=== PATIENT | male | born 1975 | race Hispanic/Latino ===

== ENCOUNTER 2019-11-08 03:45 | Emergency (ER) | payer SELFPAY ==
[~2019-11-08] VITALS: Ht 157.5 cm; Wt 68.0 kg
--- OUTSIDE RECORDS SUMMARY | 2019-11-08 03:48 | XMS REPORT ---
Author Author [facility] Address Unknown Phone Unavailable Care Team Providers Care Safety Leader Name Role Phone Unavailable Unavailable Payers Payer Name Policy Type Policy Number Effective Date Expiration Date Problems This patient has no known problems. Allergies, Adverse Reactions, Alerts Allergy Name Allergy Type Status Severity Reaction(s) Onset Date Inactive Date Treating Clinician Comments No Known Allergies DA Active U 2018-10-26 00:00:00 No Known Allergies DA Active U 2015-07-17 00:00:00 Medications This patient has no known medications. Results Test Description Test Time Test Comments Text Results Atomic Results Result Comments - XR FINGER(S) 2+V RT 2019-10-23 15:52:00 FAX: Igor Motta [facility] [phone] Dittmer: [address]: REG Name: ROMMEL,ESMSAM Ortega [facility] : 1975 Age/S: 44/M [address] [facility]: [id number] Loc: [place] [address] Phys: Igor Almendarez Acct: [id number] Dis Date: Status: REG ER PHONE #: [phone] Exam Date: 10/23/2019 1542 FAX #: [phone] Reason: FINGER PAIN EXAMS: CPT CODE: [id number] XR FINGER(S) 2+V [place] 86689 REASON FOR EXAM: FINGER PAIN EXAM ORDER DATE: 10/23/2019 2:58 PM Ordering: Igor Almendarez Attending:Gaetano Gonzalez MD Location: PROCEDURE: - XR FINGER(S) 2+V RT FINDINGS: 3 views of the right right 3rd digit were obtained. The osseous structures are unremarkable in size and shape. The joint spaces are maintained. No evidence of fracture. IMPRESSION: Soft tissue deformity in the distal tuft of the right 3rd digit without evidence of radiopaque foreign body at 9450 Reported and signed by: Dean Waller M.D. CC: Igor Almendarez Technologist: Herlinda Choi(Jailyn) Trnscrd Date/Time/By: 10/23/2019 (2814) : By: JanethVTL Orig Print D/T: S: 10/23/2019 (2855) PAGE 1 Signed Report BASIC METABOLIC PANEL 2018-10-26 11:57:00 SODIUM (test code=NA) 138 mmol/L 136-145 POTASSIUM (test code=K) 3.6 mmol/L 3.5-5.1 CHLORIDE (test code=CL) 105.0 mmol/L 98-107 CARBON DIOXIDE (test code=CO2) 25.0 mmol/L 21-32 ANION GAP (test code=GAP) 11.6 10-20 GLUCOSE (test code=GLU) 105 mg/dL 74-106 BLOOD UREA NITROGEN (test code=BUN) 20 mg/dL 7-18 GLOMERULAR FILTRATION RATE (test code=GFR) > 60 mL/min >=60 Estimated GFR by using Modified MDRD formula.Chronic kidney disease is defined as either kidney damageor GFR <60 mL/min/1.73 m2 for >3 months. CREATININE (test code=CREAT) 0.80 mg/dL 0.7-1.3 BUN/CREATININE RATIO (test code=BUN/CREA) 25.0 10-20 CALCIUM (test code=CA) 9.1 mg/dL 8.5-10.1 HEPATIC FUNCTION [id number] 11:57:00* Test Item Value Reference Range Comments TOTAL PROTEIN (test code=PROT) 8.1 gram/dL 6.4-8.2 ALBUMIN (test code=ALB) 4.3 g/dL 3.4-5.0 GLOBULIN (test code=GLOB) 3.8 gram/dL 2.7-4.2 ALBUMIN/GLOBULIN RATIO (test code=A/G) 1.1 0.75-1.50 BILIRUBIN TOTAL (test code=BILT) 0.90 mg/dL 0.0-1.0 BILIRUBIN DIRECT (test code=BILD) 0.21 mg/dL 0.0-0.20 SGOT/AST (test code=AST) 23 IUnit/L 15-37 SGPT/ALT (test code=ALT) 29 IUnit/L 12-78 ALKALINE PHOSPHATASE TOTAL (test code=ALKP) 56 IUnit/L 45-117 Note change in reference range due to change in reagent. [id number] 11:57:00* Test Item Value Reference Range Comments LIPASE (test code=LIP) 39 U/L 73.0-393.0 [id number] 11:57:00* Test Item Value Reference Range Comments TROPONIN-I (test code=TROPI) <0.015 ng/mL 0-0.045 BASIC METABOLIC [id number] 11:48:00* Test Item Value Reference Range Comments SODIUM (test code=NA) 138 mmol/L 136-145 POTASSIUM (test code=K) 3.6 mmol/L 3.5-5.1 CHLORIDE (test code=CL) 105.0 mmol/L 98-107 CARBON DIOXIDE (test code=CO2) mmol/L 21-32 ANION GAP (test code=GAP) 10-20 GLUCOSE (test code=GLU) mg/dL 74-106 BLOOD UREA NITROGEN (test code=BUN) mg/dL 7-18 GLOMERULAR FILTRATION RATE (test code=GFR) mL/min >=60 CREATININE (test code=CREAT) mg/dL 0.7-1.3 BUN/CREATININE RATIO (test code=BUN/CREA) 10-20 CALCIUM (test code=CA) mg/dL 8.5-10.1 HEPATIC FUNCTION [id number] 11:48:00* Test Item Value Reference Range Comments TOTAL PROTEIN (test code=PROT) gram/dL 6.4-8.2 ALBUMIN (test code=ALB) g/dL 3.4-5.0 GLOBULIN (test code=GLOB) gram/dL 2.7-4.2 ALBUMIN/GLOBULIN RATIO (test code=A/G) 0.75-1.50 BILIRUBIN TOTAL (test code=BILT) mg/dL 0.0-1.0 BILIRUBIN DIRECT (test code=BILD) mg/dL 0.0-0.20 SGOT/AST (test code=AST) IUnit/L 15-37 SGPT/ALT (test code=ALT) IUnit/L 12-78 ALKALINE PHOSPHATASE TOTAL (test code=ALKP) IUnit/L 45-117 [id number] 11:48:00* Test Item Value Reference Range Comments LIPASE (test code=LIP) U/L 73.0-393.0 [id number] 11:48:00* Test Item Value Reference Range Comments TROPONIN-I (test code=TROPI) ng/mL 0-0.045 - US ABDOMEN [id number] 11:33:00 Name: ANJEL CARNEY [facility] : 1975 Age/S: 43 / M [address] [facility] Unit #: [id number] Loc: [place] [address] Phys: Oswald Head OPTOMETRIC AIDE Acct: [id number] Dis Date: Status: REG ER PHONE #: [phone] Exam Date: 10/26/2018 1121 FAX #: [phone] Reason: Abdominal Pain EXAMS: CPT CODE: [id number] US ABDOMEN LTD [id number] HISTORY: Abdominal pain. COMPARISON: None available. The liver is normal in echogenicity and texture measuring 14.1 cm in length. No intra or extrahepatic biliary ductal dilatation. CBD is normal at 3.5 mm. Main portal vein is patent with hepatopedal flow and normal spectral waveform. Gallbladder demonstrates small mobile gallstones. No pericholecystic fluid or wall thickening. No ascites. Right kidney is free from hydronephrosis and calyceal stones. Normal echogenicity and texture. Right kidney measured 11.1 cm in length. Visualized portions of the IVC, aorta and pancreas are normal however imaged incompletely. IMPRESSION: Small mobile stones. No pericholecystic fluid or wall thickening. No ascites. at 1133 Reported and signed by: Angelo Ferreira M.D. CC: Kristi Cuenca DO; Oswald Head NP Technologist: YANETH ARSHAD Trnndb Date/Time: 10/26/2018 (1133) [email or web address] Orig Print D/T: S: 10/26/2018 (1137) Probe: PAGE 1 Signed Report CBC W/O [id number] 11:13:00* Test Item Value Reference Range Comments WHITE BLOOD CELL (test code=WBC) 8.6 K/mm3 4.5-12.5 RED BLOOD CELL (test code=RBC) 4.95 mill/mm3 4.0-5.8 HEMOGLOBIN (test code=HGB) 15.7 gram/dL 13.0-17.5 HEMATOCRIT (test code=HCT) 47.3 % 42.0-52.0 MEAN CELL VOLUME (test code=MCV) 95.6 fL 80-98 MEAN CELL HGB (test code=MCH) 31.7 picogram 27.0-33.0 MEAN CELL HGB CONCETRATION (test code=MCHC) 33.2 gram/dL 33.0-36.0 RED CELL DISTRIBUTION WIDTH (test code=RDW) 12.9 % 11.6-16.2 PLATELET COUNT (test code=PLT) 180 K/mm3 150-450 MEAN PLATELET VOLUME (test code=MPV) 10.3 fL 6.7-11.0 CBC W/O [id number] 11:08:00* Test Item Value Reference Range Comments WHITE BLOOD CELL (test code=WBC) K/mm3 4.5-12.5 RED BLOOD CELL (test code=RBC) mill/mm3 4.0-5.8 HEMOGLOBIN (test code=HGB) 15.7 gram/dL 13.0-17.5 HEMATOCRIT (test code=HCT) 47.3 % 42.0-52.0 MEAN CELL VOLUME (test code=MCV) fL 80-98 MEAN CELL HGB (test code=MCH) picogram 27.0-33.0 MEAN CELL HGB CONCETRATION (test code=MCHC) gram/dL 33.0-36.0 RED CELL DISTRIBUTION WIDTH (test code=RDW) % 11.6-16.2 PLATELET COUNT (test code=PLT) K/mm3 150-450 MEAN PLATELET VOLUME (test code=MPV) fL 6.7-11.0
[2019-11-08] MEDS ORDERED: HYDROCODONE/APAP 7.5MG-325MG 1 EA TAB PO PRN (04:00)
[2019-11-08] MEDS ORDERED: KETOROLAC TROMETHAMINE 60 MG/2 ML VIAL IM ONE (04:00)
--- NOTE | 2019-11-08 05:13 | Diagnostic Imaging Report ---
X-ray left shoulder 2 views HISTORY: Pain. COMPARISON: None available. FINDINGS: Bones: No acute displaced fracture. Osseous alignment is within normal limits. Joints: The joint spaces are well-maintained. Soft tissues: The soft tissues appear unremarkable. IMPRESSION: No acute radiographic osseous abnormality. Signed by: Jeff Kaplan DO on 11/08/2019 5:10 AM
[2019-11-08 05:30] VITALS: BP 113/79
== END 2019-11-08 05:56 | disposition home or self-care (01) ==
LOC: ER 03:45
DX: M25.512 Pain in left shoulder (principal)
CPT/HCPCS: 73030; 99283; J1885

== ENCOUNTER 2019-12-27 10:53 | Emergency (ER) | payer SELFPAY ==
[~2019-12-27] VITALS: Ht 157.5 cm; Wt 68.0 kg
[2019-12-27 11:15] VITALS: BP 150/96
--- NOTE | 2019-12-27 11:38 | Emergency Department Note ---
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 Historian: Patient Onset quality: gradual Duration (how long): month(s) Timing of current episode: intermittent Progression: waxing and waning Relieving factors: rest Exacerbating factors: movement Treatments prior to arrival: none, NSAID Previous service: medications given, tests performed Past Medical/Family History Physician Review I have reviewed the patient's past medical and family history. Any updates have been documented here. Past Medical History Recent Fever: No Clinical Suspicion of Infectio: No New/Unexplained Change in Ment: No Past Medical History: None Other Surgery: right pinky Social History Smoking Cessation: Never Smoker Counseling Performed: No Alcohol Use: None Any Illegal Drug Use: No TB Exposure/Symptoms: No Physically hurt or threatened: No Other Last Tetanus: utd Any Pre-Existing Lines (PICC,: No Is patient up to date on immun: No Last Flu: ood Last Pneumovax: ood Review of Systems Review of Systems Constitutional: no symptoms EENTM: no symptoms Cardiovascular: no symptoms Gastointestinal/Abdominal: no symptoms Genitourinary: no symptoms Musculoskeletal: no symptoms, joint pain Integumentary: no symptoms Neurological: no symptoms Psychological: no symptoms Endocrine: no symptoms Hematological/Lymphatic: no symptoms Review of other systems All other systems reviewed and negative. Physical Exam Related Data Allergies: Coded Allergies: No Known Allergies (Unverified , 11/08/19) Triage Vital Signs Vital Signs Date Time Temp Pulse Resp B/P (MAP) Pulse Ox O2 Delivery O2 Flow Rate FiO2 12/27/19 11:11 98.4 79 18 150/96 96 Physical Exam CONSTITUTIONAL Constitutional: well-developed, well-nourished HENT HENT: normocephalic, atraumatic, oropharynx clear/moist, nose normal HENT - Ear: left ext ear normal, right ext ear normal EYES Eyes: PERRL, conjunctivae normal NECK Neck: ROM normal PULMONARY Pulmonary: effort normal, breath sounds normal CARDIOVASCULAR Cardiovascular: regular rhythm, heart sounds normal, capillary refill normal, normal rate GASTROINTESTINAL Abdominal: soft, nontender, bowel sounds normal GENITOURINARY Genitourinary: exam deferred SKIN Skin: warm, dry MUSCULOSKELETAL Musculoskeletal: tenderness (over supraspinatus, no obvious deformity ) NEUROLOGICAL Neurological: alert, oriented x 3, no gross motor or sensory deficits PSYCHOLOGICAL Psychiatric/behavioral: mood/affect normal, judgement normal Critical Care Time Subsequent provider I assumed direction of critical care for this patient from another provider of my specialty. Assessment & Plan Assessment & Plan Problems: (1) Shoulder sprain (2) Degenerative disc disease Assessment & Plan 44 M with b/l shoulder pain 2/2 to over use -Pt NVI, normal radial/brachial pulses, soft compartments -offered steroid shot and toradol shot- wished to go home and take IBU -spoke to pt extensively about the need for preventative care and avoiding repetitive activities- which is challenging given his line of work. Depart Disposition: HOME, SELF-CARE Last Vital Signs Date Time Temp Pulse Resp B/P (MAP) Pulse Ox O2 Delivery O2 Flow Rate FiO2 12/27/19 11:15 79 18 96 12/27/19 11:11 98.4 150/96 ELIZABETH MEADOWS, December 27, 2019 11:54
== END 2019-12-27 11:36 | disposition home or self-care (01) ==
LOC: ER 10:53
DX: M25.512 Pain in left shoulder (principal); M25.511 Pain in right shoulder; S43.402A Unspecified sprain of left shoulder joint, initial encounter; S43.401A Unspecified sprain of right shoulder joint, initial encounter; X50.0XXA Overexertion from strenuous movement or load, initial encounter; Y99.0 Civilian activity done for income or pay
CPT/HCPCS: 99282